=== PATIENT | male | born 1955 | race Caucasian/White ===

== ENCOUNTER 2016-06-15 07:06 | Emergency (ER) | payer MEDICAID ==
[2016-06-15] MEDS ORDERED: TDAP Vaccine 0.5 mL Syr IM ONE (07:41)
[2016-06-15] MEDS ORDERED: Amoxicillin-Clav 875-125 mg Tab PO STA (07:41)
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
[2016-06-15 07:48] VITALS: BP 182/104; PULSE 81; RESP 17; TEMP 97.9; O2SAT 98; BMI 41.4
[2016-06-15] MEDS ORDERED: Amoxicillin-Clav 875-125 mg Tab PO ONE (08:02)
== END 2016-06-15 08:23 | disposition home or self-care (01) ==
LOC: H.ER 07:06
DX: S00.83XA Contusion of other part of head, initial encounter (principal); S50.01XA Contusion of right elbow, initial encounter; S00.81XA Abrasion of other part of head, initial encounter; Y04.0XXA Assault by unarmed brawl or fight, initial encounter; Y04.1XXA Assault by human bite, initial encounter; Y92.89 Other specified places as the place of occurrence of the external cause; E11.9 Type 2 diabetes mellitus without complications; I10 Essential (primary) hypertension; Z79.82 Long term (current) use of aspirin; Z87.891 Personal history of nicotine dependence